=== PATIENT | male | born 1955 | race Caucasian/White ===

== ENCOUNTER → 2017-05-02 | Outpatient (CLI) | payer OTHER, MEDICARE ==
[~2017-05-02] VITALS: Ht 172.7 cm; Wt 99.0 kg
[~2017-05-02] MED LIST: ASPIR-LOW81 MG PO; ASPIRIN 81M81 MG/TA2 PO; ASPIRIN E.C. 8181 MG PO; CARDI-OMEGA1000 MG PO; CLONAZEPAM PO; COLACE 100100 MG/CAP PO; CYMBALTA 30MG30 MG PO; CYMBALTA 60MG60 MG PO; ELAVIL10 MG PO; ELAVIL100 MG PO; FISH OIL 1000MG1 CAP PO; FISH OIL1 IU PO; FLOMAX 0.40.4 MG/CAP PO; GABAPENTIN600 MG PO; INTRATHECAL PUMP; KLONOPIN 1MG1 MG PO; LISINOPRIL20 MG PO; LOPID 600M600 MG/TAB PO; LOPID PO; LOPRESSOR 225 MG/TAB PO; LUTEIN PO; LUTEIN20 M1 PO; LUTEIN20 MG PO; METOPROLOL SUCC25 MG PO; MORPHINE PAIN PUMP; MULTIPLE VITAMI1 TAB PO; MVI PO; NEURONTIN600 MG/TAB PO; NORCO 325 MG-7.1 TAB PO; OXY IR5 MG PO; OXYCODONE HCL5 MG PO; OXYCONTIN 10MG10 MG PO; OXYCONTIN10 MG PO; PERCOCET 500 MG1 TAB PO; PERI-COLACE 501 TAB PO; PRAVACHOL 40MG40 MG PO; PRAVACHOL10 MG PO; PRILOSEC 20MG20 MG PO; PRILOTC PO; ROXICODONE 55 MG/TAB PO; SENOKOT S 50 MG1 TAB PO; SENOKOT15 MG/DOSE PO; SEROQUEL50 MG PO; TOPROL XL 25MG25 MG PO; VITAMIN E-400200 IU PO; VITAMIN E28000 IU PO; ZOFRAN 4MG T4 MG/TAB PO
[2017-05-02 07:36] VITALS: BP 113/80; PULSE 60
[2017-05-02 08:15] VITALS: BP 108/61; PULSE 60
[2017-05-02 08:30] VITALS: BP 101/53; PULSE 57
[2017-05-02 09:00] VITALS: BP 104/76; PULSE 57
[2017-05-02 09:15] VITALS: BP 108/71; PULSE 56
== END ==
LOC: COL.RAD 07:00
DX: M54.5 Low back pain (principal); M48.06 Spinal stenosis, lumbar region; Z98.890 Other specified postprocedural states; Z98.1 Arthrodesis status
CPT/HCPCS: Q9965

== ENCOUNTER → 2017-06-20 | Outpatient (CLI) | payer OTHER, MEDICARE ==
[2017-06-20 09:55] LABS: HEMATOCRIT 41.1 % (42.0-52.0); HEMOGLOBIN 13.9 g/dl (13.5-18.0); MEAN CELL VOLUME 86 fl (80.0-100.0); MEAN CORPUSCULAR HEMOGLOBIN 29 pg (27.0-31.0); MEAN CORPUSCULAR HGB CONC 34 g/dl (33.0-37.0); MEAN PLATELET VOLUME 11.2 fl (7.4-10.4); PLATELET COUNT 163 K/mm3 (130-400); RED BLOOD COUNT 4.78 M/mm3 (4.20-5.60); REDCELL DISTRIBUTION WIDTH-CV 12.7 % (11.5-14.5); WHITE BLOOD COUNT 4.3 K/mm3 (4.8-10.8)
[2017-06-20 10:09] LABS: ADJUSTED CALCIUM 8.9 mg/dL (8.4-10.2); ALBUMIN 4.6 gm/dL (3.5-5.0); BILIRUBIN,TOTAL 0.5 mg/dL (0.0-1.0); CALCIUM 9.4 mg/dL (8.4-10.2); CREATININE, serum 0.82 mg/dL (0.66-1.25); POTASSIUM 3.8 mmol/L (3.4-5.0); TOTAL PROTEIN 7.6 gm/dL (6.4-8.2)
[2017-06-20 10:40] LABS: THYROID STIMULATING HORMONE 3.18 uIU/mL (0.465-4.680)
== END ==
LOC: COL.LAB 08:55
PROVIDERS: Internal Medicine
DX: E78.5 Hyperlipidemia, unspecified (principal); I10 Essential (primary) hypertension

== ENCOUNTER → 2017-12-26 | Outpatient (CLI) | payer OTHER, MEDICARE | LOC: COL.LAB 10:12 | DX: R35.1 Nocturia (principal) | CPT/HCPCS: G0103 ==

== ENCOUNTER → 2018-04-30 | Outpatient (CLI) | payer OTHER, MEDICARE | LOC: COL.RAD 07:17 | DX: Z53.8 Procedure and treatment not carried out for other reasons (principal); M54.5 Low back pain ==

== ENCOUNTER 2018-05-29 11:13 | Outpatient (CLI) | payer OTHER ==
[~2018-05-29] VITALS: Ht 172.7 cm; Wt 100.0 kg
[~2018-05-29 11:13] MED LIST changes: +DESYREL 100MG100 MG PO; +FLONASEALLERGY NS; +MULTIPLE VITAMI1 CAP PO; +SEROQUEL 1100 MG/TAB PO
[2018-05-29 11:31] VITALS: BP 112/68; PULSE 58
[2018-05-29 12:30] VITALS: BP 91/68; PULSE 58; PULSE 59
[2018-05-29 12:45] VITALS: BP 119/84; PULSE 53
[2018-05-29 13:00] VITALS: BP 117/95; PULSE 58
[2018-05-29 13:15] VITALS: BP 122/73; PULSE 58
[2018-05-29 13:30] VITALS: BP 117/81; PULSE 57; TEMP 97.9
== END 2018-05-29 13:44 | disposition home or self-care (01) ==
LOC: COL.RAD 11:13
DX: M47.894 Other spondylosis, thoracic region (principal); Z98.1 Arthrodesis status; Z96.7 Presence of other bone and tendon implants

== ENCOUNTER → 2018-06-23 | Outpatient (CLI) | payer OTHER, MEDICARE ==
[2018-06-23 08:25] LABS: BASO # 0.1 (0.0-0.2); BASO % 1.3 % (0.0-2.0); EOS # 0.3 (0.0-0.7); EOS % 6.2 % (0-4.0); GRAN # 2.5 (1.4-6.5); GRAN % 46.3 % (42.2-75.2); HEMATOCRIT 47.1 % (42.0-52.0); LYMPH # 1.9 (1.2-3.4); LYMPH % 35.9 % (20.0-51.0); MEAN CELL VOLUME 86 fl (80.0-100.0); MEAN CORPUSCULAR HEMOGLOBIN 29 pg (27.0-31.0); MEAN CORPUSCULAR HGB CONC 34 g/dl (33.0-37.0); MEAN PLATELET VOLUME 11.6 fl (7.4-10.4); MONO # 0.5 (0.1-0.6); MONO % 9.9 % (1.7-9.3); PLATELET COUNT 195 K/mm3 (130-400); RED BLOOD COUNT 5.47 M/mm3 (4.20-5.60); REDCELL DISTRIBUTION WIDTH-CV 12.5 % (11.5-14.5)
[2018-06-23 08:33] LABS: ALBUMIN 4.6 gm/dL (3.5-5.0); BILIRUBIN,TOTAL 0.6 mg/dL (0.0-1.0); CALCIUM 9.4 mg/dL (8.4-10.2); CHOLESTEROL RISK RATIO 5.4; CREATININE, serum 0.98 mg/dL (0.66-1.25); TOTAL PROTEIN 8.1 gm/dL (6.4-8.2)
[2018-06-23 09:03] LABS: THYROID STIMULATING HORMONE 1.92 uIU/mL (0.465-4.680)
== END ==
LOC: COL.LAB 07:57
PROVIDERS: Internal Medicine
DX: Z11.59 Encounter for screening for other viral diseases (principal); E78.5 Hyperlipidemia, unspecified; I10 Essential (primary) hypertension

== ENCOUNTER → 2019-10-13 | Outpatient (CLI) | payer OTHER, MEDICARE ==
[2019-10-13 08:57] LABS: BILIRUBIN,TOTAL 0.7 mg/dL (0.0-1.0); CALCIUM 9.7 mg/dL (8.4-10.2); CHOLESTEROL RISK RATIO 5.1; CREATININE, serum 0.8 (0.66-1.25); HEMATOCRIT 43.8 % (42.0-52.0); MEAN CELL VOLUME 86 fl (80.0-100.0); MEAN CORPUSCULAR HEMOGLOBIN 29 pg (27.0-31.0); MEAN CORPUSCULAR HGB CONC 34 g/dl (33.0-37.0); MEAN PLATELET VOLUME 11.4 fl (7.4-10.4); PLATELET COUNT 192 K/mm3 (130-400); POTASSIUM 3.7 mmol/L (3.4-5.0); RED BLOOD COUNT 5.12 M/mm3 (4.20-5.60); REDCELL DISTRIBUTION WIDTH-CV 12.5 % (11.5-14.5); TOTAL PROTEIN 8.3 gm/dL (6.4-8.2)
[2019-10-13 16:03] LABS: HEPATITIS C VIRUS ANTIBODY Negative (Negative)
== END ==
LOC: COL.LAB 08:02
PROVIDERS: Internal Medicine
DX: Z00.00 Encounter for general adult medical examination without abnormal findings (principal); I10 Essential (primary) hypertension; E78.5 Hyperlipidemia, unspecified
CPT/HCPCS: 87522

== ENCOUNTER → 2020-09-08 | Outpatient (CLI) | payer OTHER, MEDICARE ==
[2020-09-08 10:23] LABS: CHOLESTEROL RISK RATIO 4.6
[2020-09-08 10:34] LABS: TRICYCLIC ANTIDEPRESS URINE NEGATIVE
== END ==
LOC: COL.RAD 09:04 → COL.LAB 09:20 → COL.RAD 09:20
PROVIDERS: Internal Medicine
DX: Z00.00 Encounter for general adult medical examination without abnormal findings (principal); Z12.5 Encounter for screening for malignant neoplasm of prostate; R05 Cough; Z79.899 Other long term (current) drug therapy

== ENCOUNTER → 2021-10-02 | Outpatient (CLI) | payer OTHER, MEDICARE | LOC: COL.LAB 11:45 | DX: Z01.89 Encounter for other specified special examinations (principal) ==

== ENCOUNTER → 2021-12-04 | Outpatient (CLI) | payer MEDICARE | LOC: COL.PUL 12:28 | DX: R06.02 Shortness of breath (principal) | CPT/HCPCS: J7674 ==

== ENCOUNTER 2022-01-24 06:19 | Day surgery (SDC) | payer MEDICARE ==
[2022-01-24] VITALS (14 sets, daily range): BP systolic 107–130; BP diastolic 62–84; PULSE 60–68; TEMP 97.3
[~2022-01-24] VITALS: Ht 172.8 cm; Wt 110.9 kg
[2022-01-24 07:08] LABS: HEMOGLOBIN 14.2 g/dl (13.5-18.0); MEAN CELL VOLUME 84 fl (80.0-100.0); MEAN CORPUSCULAR HEMOGLOBIN 29 pg (27-31); MEAN CORPUSCULAR HGB CONC 35 g/dl (33.0-37.0); PLATELET COUNT 194 K/mm3 (130-400); RED BLOOD COUNT 4.88 M/mm3 (4.20-5.60); REDCELL DISTRIBUTION WIDTH-CV 12.8 % (11.5-14.5)
[2022-01-24 07:16] LABS: CALCIUM 8.7 mg/dL (8.4-10.2); POTASSIUM 3.8 mmol/L (3.5-4.5)
[2022-01-24 07:18] LABS: INR 1.2 (0.8-3.0); PROTHROMBIN TIME 12.9 SECONDS (9.7-12.8)
[2022-01-24 07:20] LABS: PARTIAL THROMBOPLASTIN TIME 29.2 SECONDS (26.0-37.0)
[2022-01-24] MEDS ORDERED: CRESTOR20 MG PO (07:53)
[2022-01-24] MEDS ORDERED: NITROSTAT0.4 MG/TAB SL (07:54)
[2022-01-24] MEDS ORDERED: NORVASC 10MG10 MG PO (07:55)
[2022-01-24] MEDS ORDERED: KRILL OIL 5001 EACH PO (08:01)
[2022-01-24] MEDS ORDERED: LUNESTA3 MG PO (08:03)
[2022-01-24] MEDS ORDERED: REMERON30 MG PO (08:04)
[2022-01-24] MEDS ORDERED: PROTONIX 40MG T40 MG PO (08:05)
[2022-01-24] MEDS ORDERED: FLOMAX 0.40.4 MG/CAP PO (08:05)
[2022-01-24] MEDS ORDERED: ZYRTEC 10MG10 MG PO (08:06)
[2022-01-24] MEDS ORDERED: IMDUR 30MG30 MG/TAB PO (08:07)
== END 2022-01-24 16:10 ==
LOC: COL.CAR 06:19
PROVIDERS: Internal Medicine Cardiovascular Disease
DX: R06.02 Shortness of breath (principal); I10 Essential (primary) hypertension; E78.2 Mixed hyperlipidemia; I77.819 Aortic ectasia, unspecified site; R73.03 Prediabetes; E66.09 Other obesity due to excess calories; G47.33 Obstructive sleep apnea (adult) (pediatric); I08.0 Rheumatic disorders of both mitral and aortic valves; I45.89 Other specified conduction disorders; R00.1 Bradycardia, unspecified; Z79.82 Long term (current) use of aspirin; Z79.899 Other long term (current) drug therapy; Z68.37 Body mass index [BMI] 37.0-37.9, adult
CPT/HCPCS: J1644; J2250; J3010; Q9967

== ENCOUNTER 2024-08-26 10:12 | Inpatient (IN) | payer MEDICARE ==
[~2024-08-26] VITALS: Ht 175.3 cm; Wt 103.2 kg
[~2024-08-26 10:12] MED LIST changes: +CRESTOR40 MG PO; +FLEXERIL 1010 MG/TAB PO; +IMDUR 30MG30 MG/TAB PO; +KRILL OIL 5001 EACH PO; +LUNESTA3 MG PO; +NITROSTAT0.4 MG/TAB SL; +NORVASC 10MG10 MG PO; +PERCOCET 325 MG1 TA2 PO; +PROTONIX 40MG T40 MG PO; +REMERON30 MG PO; +ZYRTEC 10MG10 MG PO
[2024-08-26 13:00] VITALS: BP_SYST 136
[2024-08-26] MEDS ORDERED: FOLIC ACID 11 MG/TA1 PO (14:58)
[2024-08-26] MEDS ORDERED: Naloxone 0.4 MG/ML VIAL IV PRN (15:00)
[2024-08-26] MEDS ORDERED: Polyethylene Glycol 3350 17 GM PDS PO PRN (15:00)
[2024-08-26] MEDS ORDERED: Docusate Sodium 100 MG CAP PO PRN (15:00)
[2024-08-26] MEDS ORDERED: Sennosides/Docusate 8.6-50 MG TAB PO PRN (15:00)
[2024-08-26] MEDS ORDERED: Acetaminophen 325 MG TAB PO PRN (15:00)
[2024-08-26] MEDS ORDERED: XARELTO10 MG PO (15:01)
[2024-08-26] MEDS ORDERED: DESYREL 50MG50 MG PO (15:02)
[2024-08-26] MEDS ORDERED: NATURE'S BLEND100 M2 PO (15:02)
[2024-08-26] MEDS ORDERED: CARDIZEM CD 18180 MG PO (15:05)
[2024-08-26] MEDS ORDERED: PEPCID 20MG TAB20 MG PO (15:09)
[2024-08-26] MEDS ORDERED: RANEXA 500MG T500 MG PO (15:13)
--- NOTE | 2024-08-26 15:13 | NUR ---
PT BROUGHT TO FACILITY BY TRANSPORTATION SERVICES. PT BROUGHT UP TO ROOM BY W/C. PT ORIENTED TO ROOM AND SURROUNDINGS. PT ON 3L OF O2 VIA NC. PT TRANSFERRED TO RECLINER W/ ASSIST X1, WALKER, AND GB. ASSESSMENT AND INTAKE COMPLETE. NO FURTHER NEEDS AT THIS TIME. CALL LIGHT WITHIN REACH.
[2024-08-26] MEDS ORDERED: oxyCODONE 5 MG TAB PO PRN (15:15)
[2024-08-26] MEDS ORDERED: traZODone 50 MG TAB PO PRN (15:15)
[2024-08-26 17:57] VITALS: BP 123/60; PULSE 78; TEMP 97.9
[2024-08-26] MEDS ORDERED: Rivaroxaban 10 MG TAB PO SCH (18:00)
[2024-08-26 19:00] VITALS: BP_SYST 123
--- NOTE | 2024-08-26 19:50 | NUR ---
RT IN TO ASSIST PT WITH CPAP SETUP. 3L BLEED IN ADDED DUE TO PT BEING ON OXYGEN. PT STATES HE'S FAIRLY INDEPENDENT WITH CPAP.
[2024-08-26] MEDS ORDERED: Isosorbide Mononitrate CR (24-HR) 30 MG TAB PO SCH (21:00)
[2024-08-26] MEDS ORDERED: Atorvastatin 80 MG TAB PO SCH (21:00)
[2024-08-26] MEDS ORDERED: Ranolazine ER 500 MG TAB PO SCH (21:00)
[2024-08-26] MEDS ORDERED: Rosuvastatin 40 MG **** subs to Atorvastatin 80 MG PO SCH (21:00)
--- NOTE | 2024-08-26 21:46 | NUR ---
Patient assessed around 2014. Alert and oriented, and able to make needs known. Denies having pain and discomfort. Denies SOB and dyspnea. On oxygen at 3 L/min via NC. Has home CPAP that he wears at night. LS CTA. HRR. BSAx4. No edema. Voices no questions, needs, or concerns at this time. In bed with call light within reach. Bed alarm on.
--- NOTE | 2024-08-26 22:32 | NUR ---
Given PRN Trazadone as requested. Switched over to CPAP. RT aware.
[2024-08-27 05:43] VITALS: BP 143/80; PULSE 84; TEMP 98.2
--- NOTE | 2024-08-27 05:56 | NUR ---
Patient has used urinal during the night. Has denied needing any PRN medications this shift. Voices no questions, needs, or concerns at this time. In bed with call light within reach.
[2024-08-27 07:00] VITALS: BP_SYST 143
--- NOTE | 2024-08-27 08:00 | NUR ---
Pt a&ox4. VSS. Pt currently on 3L of O2 via NC. Pt is up with assist x1, walker, and gait belt. NWB on RLE. Currently in bed eating breakfast. Shift assessment complete and medications administered. No further needs at this time. Call light within reach.
[2024-08-27] MEDS ORDERED: Famotidine 20 MG TAB PO SCH (09:00)
[2024-08-27] MEDS ORDERED: Multivitamin TAB PO SCH (09:00)
[2024-08-27] MEDS ORDERED: amLODIPine 10 MG TAB PO SCH (09:00)
[2024-08-27] MEDS ORDERED: Cetirizine 10 MG TAB PO SCH (09:00)
[2024-08-27] MEDS ORDERED: Folic Acid 1 MG TAB PO SCH (09:00)
[2024-08-27] MEDS ORDERED: Lutein 20 MG CAP PO SCH (09:00)
[2024-08-27] MEDS ORDERED: Thiamine 100 MG TAB PO SCH (09:00)
--- NOTE | 2024-08-27 14:15 | NUR ---
SW met with patient to complete initial assessment for discharge planning. Patient verified that he lives in [place] with his Kenyatta ([phone]). Patient lists his , his son Sony ([phone]) and son Matthew ([phone]) as DPOA. Patient sees Dr. Kelli Banegas as his PCP and uses [facility] without difficulty. Patient uses a wheelchair, FWW and grab bars at home. Patient reports to have 2 steps into his home but states family is putting in a ramp prior to his return home. Patient denies having any home services and states he was independent prior to hospitalization. Discharge plan is pending progress with therapy. Discharge plan: re-eval
[2024-08-27 18:17] VITALS: BP 115/66; PULSE 86; TEMP 98.8
[2024-08-27 19:00] VITALS: BP_SYST 115
--- NOTE | 2024-08-27 22:14 | NUR ---
PT SITTING IN BED. MEDICATIONS ADMINISTERED PER EMAR. ASSESSMENT COMPLETED EARLIER. FAMILY WAS AT BEDSIDE BUT HAS NOW LEFT. NO COMPLAINTS AT THIS TIME. CALL LIGHT IS WITHIN REACH.
--- NOTE | 2024-08-28 00:15 | NUR ---
Patient resting in bed, with CPAP on, respirations even and unlabored, looks comfortable.
[2024-08-28 05:54] VITALS: BP 132/74; PULSE 78; TEMP 97.8
[2024-08-28 07:00] VITALS: BP_SYST 132
--- NOTE | 2024-08-28 08:00 | NUR ---
PT A&OX4. VSS. NO C/O PAIN AT THIS TIME. NOT CURRENTLY REQUIRING ANY OXYGEN. PT IN BED EATING BREAKFAST. SHIFT ASSESSMENT COMPLETE AND MEDS ADMINISTERED. TRANSFERS USING SLIDEBOARD W/ ASSIST X1 D/T NWB STATUS ON RLE. NO FURTHER NEEDS AT THIS TIME. CALL LIGHT WITHIN REACH.
--- NOTE | 2024-08-28 11:50 | NUR ---
SW met with pt to assess for any needs and schedule family meeting. Pt reports to have worked hard with PT Garry and is feeling sore. He was provided information on a family meeting for Saturday and 10:30am. He reports his should be here in person and will call her after SW leaves. Discharge Plan: re-eval
[2024-08-28 17:48] VITALS: BP 122/76; PULSE 86; TEMP 98.1
[2024-08-28 19:12] VITALS: BP_SYST 122
--- NOTE | 2024-08-28 19:39 | NUR ---
Patient assessed at this time, see shift assessment, reports pain to his right pelvis PS of 3/10, denies the need for pain meds at this time, took pill fine without any difficulty, denies further needs, call light and personal items within reach, will continue to monitor.
[2024-08-29 06:00] VITALS: BP 128/76; PULSE 75; TEMP 98.2
--- NOTE | 2024-08-29 06:11 | NUR ---
Patient had an uneventful night, coffee given per request at this time, will report off to dayshift nurse.
[2024-08-29 06:28] LABS: BASO % 0.4 % (0.0-2.0); EOS # 0.4 K/mm3 (0.0-0.7); EOS % 4.8 % (0.0-4.0); GRAN % 68.7 % (42.2-75.2); HEMOGLOBIN 10.8 g/dl (13.5-18.0); LYMPH % 13.4 % (20.0-51.0); MEAN CELL VOLUME 90 fl (80.0-100.0); MEAN CORPUSCULAR HEMOGLOBIN 30 pg (27-31); MEAN CORPUSCULAR HGB CONC 33 g/dl (33.0-37.0); MEAN PLATELET VOLUME 10.6 fl (7.4-10.4); MONO # 0.8 K/mm3 (0.1-0.6); MONO % 11.6 % (1.7-9.3); PLATELET COUNT 184 K/mm3 (130-400); RED BLOOD COUNT 3.61 M/mm3 (4.20-5.60); REDCELL DISTRIBUTION WIDTH-CV 13.8 % (11.5-14.5)
[2024-08-29 06:40] LABS: CALCIUM 9.3 mg/dL (8.4-10.2); CREATININE, serum 0.82 mg/dL (0.72-1.25); POTASSIUM 4.4 mEq/L (3.5-4.5)
[2024-08-29 06:41] LABS: HEMATOCRIT 32.4 % (42.0-52.0)
[2024-08-29 07:00] VITALS: BP_SYST 128
--- NOTE | 2024-08-29 09:01 | NUR ---
PT SITTING UP IN BED. AM MEDS GIVEN ORDERED. PT DENIES PAIN. SWALLOWS PILL WHOLE. REVIEWED CARE PLAN AND PT VERBALIZED UNDERSTANDING. DRESSING TO RIGHT HIP CDI. EATING AND DRINKING NO NAUSEA OR VOMITING NOTED.
[2024-08-29 18:08] VITALS: BP 108/66; PULSE 88; TEMP 97.8
[2024-08-29 18:42] VITALS: BP_SYST 108
[2024-08-29 19:11] VITALS: BP 121/71; PULSE 80
--- NOTE | 2024-08-29 19:18 | NUR ---
Patient watching tv, assessed at this time, see shift assessment, A/Ox4, reports pain to pelvis, PS of 5/10, medicated with tylenol at this time, offered ice pack and he agreed to try it, will continue to monitor.
--- NOTE | 2024-08-29 20:28 | NUR ---
Patient still reports pain to pelvis at 5/10, medicated with oxycodone at this time.
[2024-08-30 06:00] VITALS: BP 143/74; PULSE 68; TEMP 97.5
[2024-08-30 06:30] VITALS: BP_SYST 143
--- NOTE | 2024-08-30 19:18 | NUR ---
PT SITTING IN BED. COMPLAINS OF 5/10 PAIN. ADMINISTERED PAIN MEDICATION PER EMAR. NO OTHER COMPLAINTS AT THIS TIME. CALL LIGHT IS WITHIN REACH.
--- NOTE | 2024-08-31 00:46 | NUR ---
ASSESSMENT COMPLETED EARLIER. MEDICATIONS ADMINISTERED PER EMAR. NO COMPLAINTS AT THIS TIME. CALL LIGHT IS WITHIN REACH.
[2024-08-31 05:41] VITALS: BP 112/66; PULSE 76; TEMP 98.5
--- NOTE | 2024-08-31 06:45 | NUR ---
awake resting in bed, bedside shift report received from JEFE Tenorio
[2024-08-31 07:17] VITALS: BP_SYST 112
--- NOTE | 2024-08-31 07:30 | NUR ---
resting in bed, am meds provided, c/o pain 02/18 and medicated with roxicodone for the pain and in anticipation of therapy, full assessment completed, see interventions for further info
--- NOTE | 2024-08-31 08:00 | NUR ---
occupational therapy in to work with patient and assisted him with taking a shower
--- NOTE | 2024-08-31 09:06 | NUR ---
had shower with occupational therapy and tolerated well, Dr Cristina in to see patient, denies needs at this time
--- NOTE | 2024-08-31 11:08 | NUR ---
physical therapy in to work with patient, stood very briefly and cocyx assessed, skin intact without redness
--- NOTE | 2024-08-31 13:01 | NUR ---
is out of the room and working with physical therapy
--- NOTE | 2024-08-31 14:10 | NUR ---
c/o pain 04/20 and medicated with roxicodone 5mg po
--- NOTE | 2024-08-31 14:49 | NUR ---
Admission QIM scores were reviewed by the team. Code of 88 chosen for oral hygiene was determined by team discussion to be the most usual performance before interventions for this patient during the assessment period. Code of 2 chosen for lower body dressing was determined by team discussion to be the most usual performance before interventions for this patient during the assessment period. Code of 2 chosen for putting on/taking off footwear was determined by team discussion to be the most usual performance before interventions for this patient during the assessment period. Code of 2 chosen for lying to sitting side of bed was determined by team discussion to be the most usual performance before interventions for this patient during the assessment period. Code of 2 chosen for chair to bed was determined by team discussion to be the most usual performance for this patient during the discharge assessment period. Code of 4 chosen for wheel 50 feet w/ 2 turns was determined by team discussion to be the most usual performance before interventions for this patient during the assessment period. Code of 4 chosen for wheel 150 feet was determined by team discussion to be the most usual performance before interventions for this patient during the assessment period.--Georgette Reyes,
--- NOTE | 2024-08-31 15:17 | NUR ---
remains up in WC, visiting with a friend and oncology social work in to see patient
--- NOTE | 2024-08-31 15:53 | NUR ---
physical and occupational therapy in to work with patient, assisted up to bathroom and was able to void and now is ambulating in the buckley with steady gait
--- NOTE | 2024-08-31 17:16 | NUR ---
color drum worker met with patient to introduce herself. Patient was doing well. SW was informed patient needs a wheelchair and sliding board and would like these ordered at [facility]. Patient's family is working on building a ramp at his house. Family meeting is scheduled for 09/02/24 at 10:30 AM. SW will follow up with patient at that time.
[2024-08-31 18:16] VITALS: BP 120/75; PULSE 88; TEMP 97.9
--- NOTE | 2024-08-31 18:56 | NUR ---
bedside shift report given to JEFE Tenorio
--- NOTE | 2024-08-31 19:13 | NUR ---
PT LAYING IN BED. AT BEDSIDE. CALL LIGHT IS WITHIN REACH. NO COMPLAINTS AT THIS TIME.
[2024-08-31 19:16] VITALS: BP_SYST 120
--- NOTE | 2024-08-31 21:33 | NUR ---
PT IS LAYING IN BED CURRENTLY. NO COMPLAINTS AT THIS TIME. HIS CPAP IS CURRENTLY ON.. ASSESSMENT COMPLETED EARLIER. MEDICATIONS ADMINISTERED PER EMAR. NO COMPLAINTS AT THIS TIME. HAS USED URINAL. VSS. BED IS IN LOWEST POSITION.
[2024-09-01 06:08] VITALS: BP 146/61; PULSE 73; TEMP 98
[2024-09-01 07:00] VITALS: BP_SYST 146
--- NOTE | 2024-09-01 09:00 | NUR ---
PT A&OX4. VSS. NO C/O PAIN AT THIS TIME. PT UP IN W/C WATCHING TV. SHIFT ASSESSMENT COMPLETE AND MEDICATIONS ADMINISTERED. PT TRANSFERS USING SLIDEBOARD W/ ASSIST X1. NO FURTHER NEEDS AT THIS TIME. CALL LIGHT WITHIN REACH.
[2024-09-01 17:21] VITALS: BP 121/70; PULSE 89; TEMP 98.3
--- NOTE | 2024-09-01 19:11 | NUR ---
PT LAYING IN BED. WAS AT BEDSIDE BUT HAS NOW LEFT. URINAL HAS BEEN EMPTIED. PT HAS CALL LIGHT WITHIN REACH. STATES HIS PAIN IS DOING BETTER TODAY. NO COMPLAINTS AT THIS TIME. BED IS IN LOWEST POSITION.
[2024-09-01 20:16] VITALS: BP_SYST 121
--- NOTE | 2024-09-01 21:47 | NUR ---
ASSESSMENT COMPLETED EARLIER. MEDICATIONS ADMINISTERED PER EMAR. NO COMPLAINTS AT THIS TIME. CALL LIGHT IS WITHIN REACH.
[2024-09-02 05:57] VITALS: BP 132/79; PULSE 80; TEMP 97.6
[2024-09-02 07:00] VITALS: BP_SYST 132
--- NOTE | 2024-09-02 08:26 | NUR ---
PT A&OX4. VSS. NO C/O PAIN AT THIS TIME AND DENIES NEED FOR PAIN INTERVENTIONS BEFORE THERAPY. PT TRANSFERS USING SLIDEBOARD. CHAIRFAST AT THIS TIME D/T NWB STATUS ON RLE. SHIFT ASSESSMENT COMPLETE AND MEDICATIONS ADMINISTERED. IN BED EATING BREAKFAST. NO FURTHER NEEDS AT THIS TIME. CALL LIGHT WITHIN REACH. URINAL EMPTIED AND RETURNED TO BEDSIDE.
--- NOTE | 2024-09-02 17:28 | NUR ---
tnt powder worker attended the IPR team conference. Patient is scheduled tentatively for discharge on Saturday with at home assessment for Saturday. Patient will need a wheelchair, bedside commode and tub transfer bench. Patient is being recommended home health services. SW attended family meeting with patient, IPR team and patient's . Patient is in agreement with discharge on Saturday with home assessment on Saturday. SW is going to order the wheelchair for patient and attempt to locate a bedside commode and tub transfer bench either at [facility] or [facility]. Home Assessment scheduled for Saturday at 10 am. SW provided Medicare.gov list of home health options. SW will follow up with patient and about their choice of home health. SW met with patient and provided a copy of the IPR team conference notes and reviewed them with him. Discharge plan: Home with home health
[2024-09-02 17:35] VITALS: BP 136/74; PULSE 88; TEMP 97.6
[2024-09-02 19:15] VITALS: BP_SYST 136
--- NOTE | 2024-09-02 19:15 | NUR ---
PT SITTING IN CHAIR. NO COMPLAINTS AT THIS TIME. CALL LIGHT IS WITHIN REACH. VSS.
--- NOTE | 2024-09-02 22:20 | NUR ---
ASSESSMENT COMPLETED EARLIER. MEDICATIONS ADMINISTERED PER EMAR. NO COMPLAINTS AT THIS TIME. PT IS RESTING IN BED AT THIS TIME.
[2024-09-03 05:48] VITALS: BP 133/65; PULSE 80; TEMP 98.6
[2024-09-03 08:50] VITALS: BP_SYST 133
[2024-09-03] MEDS ORDERED: Methocarbamol 750 MG TAB PO PRN (09:30)
--- NOTE | 2024-09-03 10:34 | NUR ---
PT ACTIVE PARTICIPANT IN CARES, PHYSICAL LIMITATIONS ALLOW. IN GOOD SPIRITS, APPROPRIATE INTERACTION. PT DENIED PAIN, DENIES FURTHER NEEDS, TO THERAPY VIA W/C, WHEELS SELF.
--- NOTE | 2024-09-03 13:45 | NUR ---
particleboard factory worker contacted [facility] to determine if they have a beside commode and tub transfer bench. SW was notified they have these items for patient and will set aside for patient's to pick up man. SW contacted patient's to discuss the above information. Kenyatta stated they would pick up man the equipment for patient. Kenyatta reported the ramp would not be done on Saturday but would be done on Saturday and wanted to know if they still needed to do a home assessment. TOBY will check with Georgette and notify Kenyatta. Kenyatta explained she was still reviewing the home health options. TOBY will follow up on this. Discharge plan: Home with Home Health
--- NOTE | 2024-09-03 15:12 | NUR ---
service worker secure emailed wheelchair order to [facility] and notified them of discharge date on Saturday. DIscharge plan: Home with home health
[2024-09-03 18:02] VITALS: BP 150/71; PULSE 94; TEMP 98.1
--- NOTE | 2024-09-03 18:40 | NUR ---
PATIENT SITTING UP IN BEDSIDE RECLINER WITH TV ON WITH NO FAMILY PRESENT WITH NO ACUTE DISTRESS NOTED. PATIENT ON ROOM AIR. BEDSIDE SHIFT REPORT COMPLETED WITH JADE. PATIENT DENIES ANY NEEDS AT THIS TIME. RECLINER LOCKED AND CALL LIGHT WITHIN REACH. CHAIR ALARM ON.
[2024-09-03 20:11] VITALS: BP_SYST 150
--- NOTE | 2024-09-03 20:58 | NUR ---
PATIENT RESTING IN BED WITH TV OFF WITH NO FAMILY PRESENT WITH NO ACUTE DISTRESS NOTED. PATIENT ON ROOM AIR. ASSESSMENT AND MEDICATION ADMINISTRATION COMPLETED AT THIS TIME. PATIENT TOLERATED WELL. PATIENT STATED HIS PAIN LEVEL WAS 3 ON SCALE OF 0 TO 10. PATIENT REQUESTED SLEEP AND PAIN MEDICATION. BOTH GIVEN SEE EMAR. PATIENT REQUSTED CPAP BE PLACED ON. PATIENT ASSISTED WITH SETTING UP CPAP AND PATIENT PLACED ON. PATIENT DENIES ANY OTHER NEEDS. BED IN LOW POSITION WITH WHEELS LOCKED WITH RAILS UP X3 AND CALL LIGHT WITHIN REACH. BED ALARM ON.
[2024-09-04 05:51] VITALS: BP 115/68; PULSE 81; TEMP 97.5
[2024-09-04 07:22] VITALS: BP_SYST 115
--- NOTE | 2024-09-04 07:23 | NUR ---
BEDSIDE SHIFT REPORT RECIEVED AT THIS TIME.
--- NOTE | 2024-09-04 08:00 | NUR ---
SHIFT ASSESSMENT COMPLETED AT THIS TIME. PT RESTING IN BED UPON ENTRANCE. PT A&OX4. PT DENIES PAIN, NAUSEA AND SOB AT THIS TIME. PT REQUESTS GETTIGN UP TO WHEELCHAIR. THIS NURSE ASSUSTED PATIENT. MORNING MEDICATIONS ADMIMNISTERED AT THIS TIME WITHOUT COMPLICATIONS. FALL PRECAUTIONS IN PLACE. PT HAS NO FURTHER NEEDS AT THIS TIME.
[2024-09-04 17:35] VITALS: BP 136/75; PULSE 83; TEMP 97.7
--- NOTE | 2024-09-04 18:17 | NUR ---
PT RESTING IN BED AT THIS TIME. PT HAS NO NEEDS OR CONCERS.
[2024-09-04 18:45] VITALS: BP_SYST 136
[2024-09-05 05:17] VITALS: BP 133/62; PULSE 86; TEMP 97.4
[2024-09-05 07:00] VITALS: BP_SYST 133
--- NOTE | 2024-09-05 08:00 | NUR ---
PT A&OX4. VSS. NO C/O PAIN AT THIS TIME. PT UP IN RECLINER EATING BREAKFAST. AWARE OF THERAPY SCHEDULE FOR THE DAY. SHIFT ASSESSMENT COMPLETE AND MEDS ADMINISTERED. PIVOT TRANSFERS USED FOR PT W ASSIST X1 AND WALKER. NWB ON RLE. NO FURTHER NEEDS AT THIS TIME. CALL LIGHT WITHIN REACH.
[2024-09-05 17:22] VITALS: BP 137/72; PULSE 83; TEMP 98.2
[2024-09-05 19:13] VITALS: BP_SYST 137
--- NOTE | 2024-09-05 20:36 | NUR ---
Patient watching TV while sitting up on a wheelchair, assessed at this time, see shift assessment, A/Ox4, rates his pelvic pain at 5/10, denies the need for pain meds at this time, dressing to right hip, clean, dry and intact, noted 2 intact blisters around the dressing to right hip, will continue to monitor. denies furhter needs, call light and personal items within reach.
[2024-09-06 05:39] VITALS: BP 122/72; PULSE 83; TEMP 97.9
[2024-09-06 07:05] VITALS: BP_SYST 122
--- NOTE | 2024-09-06 08:00 | NUR ---
PT A&OX4. VSS. NO C/O PAIN AT THIS TIME. HELPED PT GET INTO W/C TO EAT BREAKFAST. PIVOT TRANSFERS W/ WALKER. SHIFT ASSESSMENT COMPLETE AND MEDICATIONS ADMINISTER. NEW BLISTERS AROUND R HIP DRESSING ASSESSED AND ARE STILL INTACT. NO FURTHER NEEDS AT THIS TIME. CALL LIGHT WITHIN REACH.
[2024-09-06 17:35] VITALS: BP 153/75; PULSE 82; TEMP 97.7
[2024-09-06 18:50] VITALS: BP_SYST 153
--- NOTE | 2024-09-06 21:40 | NUR ---
Patient resting in bed. Rates pain about 4/10, denies need for pain meds at this time. Snack provided, needs met. Assessment complete. Call light and personal items in reach. Bed in low position and bed alarm on.
[2024-09-07 03:26] VITALS: BP 114/68; PULSE 86; TEMP 98.4
[2024-09-07 06:45] VITALS: BP_SYST 114
--- NOTE | 2024-09-07 16:34 | NUR ---
TOBY Hansk faxed clinical updates to [facility]. Discharge plan: Home with Home Health - 09/09/24
[2024-09-07 17:35] VITALS: BP 142/75; PULSE 85; TEMP 97.8
[2024-09-07 20:30] VITALS: BP_SYST 142
--- NOTE | 2024-09-07 22:00 | NUR ---
Patients resting in bed. Denies any pain at this time. Needs met. Assessment complete. Call light and personal items in reach. Bed in low position and bed alarm on.
[2024-09-08 05:58] VITALS: BP 137/71; PULSE 77; TEMP 97.6
[2024-09-08 07:00] VITALS: BP_SYST 137
--- NOTE | 2024-09-08 08:00 | NUR ---
PT SITTING BEDSIDE IN WHEELCHAIR. AAOX4. HEAD TO TOE ASSESSMENT COMPLETED. MORNING MEDS GIVEN. CALL LIGHT IN REACH.
--- NOTE | 2024-09-08 12:37 | NUR ---
D: Ammonia Box Operator stopped by room on rounds. A: Pt was resting and content in his wheelchair growing stronger everyday. Pt has no needs right now. P: Ammonia Box Operator informed pt that if he needed anything to let him know. Ammonia Box Operator will follow up as needed.
--- NOTE | 2024-09-08 16:27 | NUR ---
attraction worker met with patient and reviewed important message from medicare. Patient understood and signed form. SW made copy, placed original in chart and provided copy to patient. TOBY confirmed patient's wheelchair will be delivered prior to discharge. TOBY faxed clinical updates to [facility] and notified them discharge is Saturday. Discharge plan: Home with home health tomorrow
[2024-09-08 16:45] VITALS: BP 134/73; PULSE 81; TEMP 98
[2024-09-08 18:53] VITALS: BP_SYST 134
--- NOTE | 2024-09-08 21:07 | NUR ---
PT SITTING UP IN WHEEL CHAIR, ALERT AND ORIENTEDX4. ASSESSED PT. RATE PAIN 2/10 IN THE PELVIS AREA. GAVE NIGHT MEDS. PLAN FOR PATIENT TO GO HOME WITH HOME HEALTH TOMORROW. NO OTHER COMPLAINTS AT THIS TIME. CALL LIGHT WITHIN REACH.
[2024-09-09 05:57] VITALS: BP 129/78; PULSE 87; TEMP 97.4
[2024-09-09 07:00] VITALS: BP_SYST 129
--- NOTE | 2024-09-09 07:02 | NUR ---
PATIENT SITTING ON THE SIDE OF THE BED. PATIENT C/O 2/10 PAIN AROUND HIS PELVIC AREA. DENIES ANY PAIN MEDICATIONS AT THIS TIME. PATIENT STATES HE IS READY FOR ANTICIPATED DISCHARGE TODAY. MORNING MEDICATIONS GIVEN, PT TOLERATED WELL. RN STAYED BEDSIDE WHILE PATIENT MOVED TO CHAIR.
--- NOTE | 2024-09-09 08:00 | NUR ---
PT SITTING IN WHEEL CHAIR AT BEDSIDE. AAOX4. HEAD TO TOE ASSESSMENT COMPLETED. MORNING MEDS GIVEN. PAIN MED GIVEN FOR PELVIC PAIN. COMPLETED BREAKFAST. CALL LIGHT IN REACH.
[2024-09-09] MEDS ORDERED: XARELTO10 MG PO (09:14)
[2024-09-09] MEDS ORDERED: Influenza Virus Vaccine, Hi-Dose Triv '24-25 (65 YR+) 0.5 ML SYRINGE IM SCH (09:15)
[2024-09-09] MEDS ORDERED: NORVASC 10MG10 MG PO (09:15)
[2024-09-09] MEDS ORDERED: ROXICODONE 55 MG/TAB PO (09:16)
--- NOTE | 2024-09-09 11:01 | NUR ---
Social work student faxxed updates to [facility]. Discharge plan: home with HH from [facility]
--- NOTE | 2024-09-09 11:20 | NUR ---
DISCUSSED DISCHARGED PAPERWORK AND FOLLOW UP APPOINTMENTS. ESCORTED PT OUT TO VEHICLE WITH , BELONGINGS VIA WHEELCHAIR.
[2024-09-09] MEDS ORDERED: DESYREL 50MG50 MG PO (12:31)
[2024-09-09] MEDS ORDERED: PROTONIX 40MG T40 MG PO (12:31)
--- NOTE | 2024-09-09 13:22 | NUR ---
drywall metal stud worker faxed clinical updates and discharge orders to [facility]. Patient's wheelchair was delivered yesterday afternoon. SW attended IPR team conference. Patient is still scheduled to discharge today home with [facility]. No further needs at this time. Discharge plan: Home with [facility]
== END 2024-09-09 11:15 | disposition home health service (06) | DRG 560 ==
PROVIDERS: Physician Assistant; ADMIT Physical Medicine & Rehabilitation Sports Medicine
DX: S32.512D Fracture of superior rim of left pubis, subsequent encounter for fracture with routine healing (principal); I50.32 Chronic diastolic (congestive) heart failure; S32.511D Fracture of superior rim of right pubis, subsequent encounter for fracture with routine healing; R26.89 Other abnormalities of gait and mobility; S32.301D Unspecified fracture of right ilium, subsequent encounter for fracture with routine healing; I25.10 Atherosclerotic heart disease of native coronary artery without angina pectoris; G47.33 Obstructive sleep apnea (adult) (pediatric); G89.29 Other chronic pain; E78.5 Hyperlipidemia, unspecified; D69.6 Thrombocytopenia, unspecified; I11.0 Hypertensive heart disease with heart failure; R09.02 Hypoxemia; D64.89 Other specified anemias; R91.1 Solitary pulmonary nodule; K21.9 Gastro-esophageal reflux disease without esophagitis; J30.2 Other seasonal allergic rhinitis; G47.00 Insomnia, unspecified; N40.0 Benign prostatic hyperplasia without lower urinary tract symptoms; V86.7 Person on outside of special all-terrain or other off-road motor vehicle injured in nontraffic accident; Z98.1 Arthrodesis status; Z96.82 Presence of neurostimulator; Z74.09 Other reduced mobility; M96.1 Postlaminectomy syndrome, not elsewhere classified; S32.592D Other specified fracture of left pubis, subsequent encounter for fracture with routine healing; S32.591D Other specified fracture of right pubis, subsequent encounter for fracture with routine healing
CPT/HCPCS: A9284